=== PATIENT | male | born 1945 | race Caucasian/White ===

== ENCOUNTER → 2020-03-29 | Outpatient (CLI) | payer MEDICARE, BC ==
[~2020-03-29] MED LIST: ALLO300T PO; CHOL10003 PO; CIME200T6 PO; CYAN25009 PO; ENAL20TA PO; MAGN400T9 PO; METF1000 PO; MINO2.5T PO; MULT-449 PO; OMEG-14 PO; ROSU20TA2 PO; TRAZ50TA66 PO; UBID100C24 PO; align PO; resveratrol PO; testosterone gel TD
[2020-03-29 13:48] LABS: ALBUMIN 3.4 g/dL (3.4-5.0); ANION GAP 6 mmol/L (5-15); CALCIUM 8.6 mg/dL (8.5-10.1); CHLORIDE 105 mmol/L (98-107)
[2020-03-29 13:51] LABS: ALANINE AMINOTRANSFERASE 36 U/L (12-78); ALKALINE PHOSPHATASE 87 U/L (45-117); BILIRUBIN,TOTAL 0.9 mg/dL (0.2-1.0); CREATININE 1.23 mg/dL (0.7-1.3); TOTAL PROTEIN 7.1 g/dL (6.4-8.2)
== END | disposition home or self-care (01) ==
LOC: STAR 12:27
PROVIDERS: ATTEND Internal Medicine
DX: Z01.818 Encounter for other preprocedural examination (principal); K80.50 Calculus of bile duct without cholangitis or cholecystitis without obstruction
CPT/HCPCS: 36415; 80053; 93005

== ENCOUNTER 2020-04-02 10:31 | Day surgery (SDC) | payer MEDICARE, BC ==
[~2020-04-02] VITALS: Ht 188 cm; Wt 96.7 kg
[~2020-04-02 10:31] MED LIST changes: +BUPIVACAINE/PF-EPI 0.5% 1:200K ONE
[2020-04-02 11:03] VITALS: BP 160/90
[2020-04-02] MEDS ORDERED: CHLORHEXIDINE 15 ML UDC MM ONE (11:30)
[2020-04-02] MEDS ORDERED: FENTANYL PF 100 MCG/2ML ONE ×2 (11:50→14:15)
[2020-04-02] MEDS ORDERED: MIDAZOLAM 1 MG/ML, 2ML ONE (11:51)
[2020-04-02] MEDS ORDERED: FENTANYL PF 250 MCG/5ML ONE (11:52)
[2020-04-02] MEDS ORDERED: LACTATED RINGERS 1,000 ML IV SCH (12:00)
[2020-04-02] MEDS ORDERED: METOPROLOL 1 MG/ML, 5ML ONE (12:15)
[2020-04-02] MEDS ORDERED: SUCCINYLCHOLINE 20 MG/ML, 10ML ONE ×2 (12:43→13:53)
[2020-04-02] MEDS ORDERED: ONDANSETRON 2MG/ML, 2ML ONE ×2 (12:43→13:53)
[2020-04-02] MEDS ORDERED: GLYCOPYRROLATE 0.2MG/1ML, 5ML ONE ×2 (12:43→13:53)
[2020-04-02] MEDS ORDERED: CEFAZOLIN 1,000 MG ONE ×2 (12:43→13:53)
[2020-04-02] MEDS ORDERED: DEXAMETHASONE 4 MG/ML, 1ML ONE ×2 (12:43→13:53)
[2020-04-02] MEDS ORDERED: PROPOFOL 10 MG/ML, 20ML ONE ×2 (12:43→13:53)
[2020-04-02] MEDS ORDERED: ROCURONIUM 10MG/ML,5ML ONE ×3 (12:43→13:53)
[2020-04-02] MEDS ORDERED: NEOSTIGMINE 1 MG/ML, 10ML ONE ×2 (12:43→13:53)
[2020-04-02] MEDS ORDERED: PROMETHAZINE 25 MG/ML, 1ML IVPush PRN (13:00)
[2020-04-02] MEDS ORDERED: PROMETHAZINE 25 MG SUPP PR PRN (13:00)
[2020-04-02] MEDS ORDERED: HYDROmorphone 1 MG/ML, 1ML INJ IVPush PRN (13:00)
[2020-04-02] MEDS ORDERED: ONDANSETRON 2MG/ML, 2ML IVPush PRN (13:00)
[2020-04-02] MEDS ORDERED: ACETAMINOPHEN 325 MG TABLET PO PRN ×2 (13:00→13:30)
[2020-04-02] MEDS ORDERED: hydrALAzine 20 MG/ML, 1ML IV PRN ×2 (13:00→13:30)
[2020-04-02] MEDS ORDERED: LABETALOL 5MG/ML, 20ML IV PRN ×2 (13:00→13:30)
[2020-04-02] MEDS ORDERED: FENTANYL PF 100 MCG/2ML IV PRN (13:00)
[2020-04-02] MEDS ORDERED: OXYcodone 5 MG/5 ML ORAL.SOL UDC PO PRN ×2 (13:00→13:30)
[2020-04-02] MEDS ORDERED: BUPIVACAINE/PF-EPI 0.5% 1:200K INFIL ONE (13:22)
[2020-04-02] MEDS ORDERED: HYDROmorphone 2 MG/ML, 1ML IVPush PRN (13:30)
[2020-04-02] MEDS ORDERED: DIAZEPAM 5 MG/ML, 2ML IVPush PRN (13:30)
[2020-04-02] MEDS ORDERED: MEPERIDINE/PF 25MG/0.5ML IVPush PRN (13:30)
[2020-04-02] MEDS ORDERED: PROMETHAZINE 25 MG/ML, 1ML IV PRN (13:30)
[2020-04-02] MEDS ORDERED: ALBUTEROL SULFATE 2.5 MG/3 ML NPPB PRN (13:30)
[2020-04-02] MEDS ORDERED: KETOROLAC 30 MG/1 ML IV PRN (13:30)
[2020-04-02] MEDS ORDERED: SUGAMMADEX 200 MG/2 ML IVPush ONE (13:53)
[2020-04-02] MEDS ORDERED: ACETAMINOPHEN 650 MG/20.3 ML UDC ONE (14:15)
[2020-04-02] MEDS ORDERED: OXYcodone 5 MG/5 ML ORAL.SOL UDC ONE (14:15)
[2020-04-02] MEDS: FENTANYL PF 100 MCG/2ML IV PRN ×2 (14:16→14:26)
[2020-04-02] MEDS ORDERED: PROMETHAZINE 25 MG/ML, 1ML ONE (14:18)
[2020-04-02] MEDS ORDERED: KETOROLAC 30 MG/1 ML ONE (14:30)
== END 2020-04-02 17:00 | disposition home or self-care (01) ==
LOC: OUT 10:31
PROVIDERS: ATTEND Internal Medicine
DX: Z46.89 Encounter for fitting and adjustment of other specified devices (principal); Z11.59 Encounter for screening for other viral diseases; K80.66 Calculus of gallbladder and bile duct with acute and chronic cholecystitis without obstruction; I10 Essential (primary) hypertension; E11.9 Type 2 diabetes mellitus without complications; E78.00 Pure hypercholesterolemia, unspecified; M10.9 Gout, unspecified; I25.2 Old myocardial infarction; I25.10 Atherosclerotic heart disease of native coronary artery without angina pectoris; Z79.899 Other long term (current) drug therapy; Z88.1 Allergy status to other antibiotic agents; Z98.52 Vasectomy status; Z90.79 Acquired absence of other genital organ(s); Z98.890 Other specified postprocedural states
CPT/HCPCS: 36415; 43259; 43264; 43275; 47562; 74328; 82962; 87635; 88304; C1769; J0330; J0690; J1100; J1885; J2405; J2550; J2704; J2710; J3010; J7120; J2250